=== PATIENT | male | born 1975 | race Caucasian/White ===

== ENCOUNTER 2016-10-09 11:38 | Emergency (ER) | payer OTHER ==
[2016-10-09] MEDS ORDERED: Lidocaine 1% 20 ML MDV INJECT ONE (12:06)
[2016-10-09] MEDS ORDERED: Bacitracin Oint 1 GM U/D Packet TOP ONE (12:07)
--- NOTE | 2016-10-09 12:22 | EDM.PDOC ---
ED HPI GENERAL MEDICAL PROBLEM - General Chief Complaint: Laceration Stated Complaint: LEFT THUMB INJURY Time Seen by Provider: 10/09/16 12:15 Source of Information: Reports: Patient History Limitations: Reports: No Limitations - History of Present Illness INITIAL COMMENTS - FREE TEXT/NARRATIVE: HISTORY AND PHYSICAL: History of present illness: [Patient presents to the emergency room today with complaints of laceration to left thumb. States he was working with a blade and the blade "came off" and cut the pad of his left thumb. Laceration is superficial. Patient proceeded to create a pressure dressing to control bleeding. Reports that he has had a tetanus within the last 4-5 years. Patient denies any complaints of numbness or tingling to the affected extremity. Review of systems: As per history of present illness and below otherwise all systems reviewed and negative. Past medical history: As per history of present illness and as reviewed below otherwise noncontributory. Surgical history: As per history of present illness and as reviewed below otherwise noncontributory. Social history: No reported history of drug or alcohol abuse. Family history: As per history of present illness and as reviewed below otherwise noncontributory. Physical exam: HEENT: Atraumatic, normocephalic. Lungs: Clear to auscultation, breath sounds equal bilaterally. Heart: S1S2, regular, negative for clicks, rubs, or JVD. Extremities: 1 cm vertical superficial laceration to left anterior distal pad of thumb, no current bleeding noted. No tendon involvement. No numbness or tingling. Neurovascular unremarkable. Neuro: Awake, alert, oriented. Motor and sensory unremarkable throughout. Exam nonfocal. Diagnostics: [X-ray left thumb] Therapeutics: [Dermabond closure with non-stick dressing Impression: [Superficial laceration of the left thumb] Plan: [Discussed signs and symptoms of infection which would require patient to return to the ED or follow-up with his primary provider. Patient voices understanding. Keep wound clean and dry.] Definitive disposition and diagnosis as appropriate pending reevaluation and review of above. Onset: Today Onset Date: 10/09/16 Onset Time: 11:00 Duration: Minutes: Location: Reports: Upper Extremity, Left Left 1-Thumb Pain Score (Numeric/FACES): 3 - Related Data Allergies Allergy/AdvReac Type Severity Reaction Status Date / Time No Known Allergies Allergy Verified 10/09/16 11:57 Home Meds: Home Meds . [No Known Home Meds] 10/09/16 [History] Past Medical History Musculoskeletal History: Reports: Other (See Below) Other Musculoskeletal History: R ACL tear/ no repair Social & Family History - Family History Family Medical History: Noncontributory - Tobacco Use Smoking Status *Q: Never Smoker Second Hand Smoke Exposure: No - Caffeine Use Caffeine Use: Reports: Soda - Recreational Drug Use Recreational Drug Use: No ED ROS GENERAL - Review of Systems Review Of Systems: ROS reveals no pertinent complaints other than HPI. ED EXAM, SKIN/RASH Exam: See Below (See history of present illness) Course - Vital Signs Last Recorded V/S: Last Vital Signs Temp 97.7 F 10/09/16 11:53 Pulse 95 10/09/16 11:53 Resp 18 10/09/16 11:53 BP 143/87 H 10/09/16 11:53 Pulse Ox 98 10/09/16 11:53 - Orders/Labs/Meds Meds: Medications Discontinued Medications Generic Name Dose Route Start Last Admin Trade Name Brittanie PRN Reason Stop Dose Admin Bacitracin 1 dose 10/09/16 12:07 10/09/16 12:47 Bacitracin Oint 1 Gm TOP 10/09/16 12:08 Not Given ONETIME ONE Lidocaine HCl 20 ml 10/09/16 12:06 10/09/16 12:47 Xylocaine 1% INJECT 10/09/16 12:07 Not Given ONETIME ONE Octyl Cyanoacrylate 1 applic 10/09/16 12:40 10/09/16 12:47 Dermabond Mini TOP 10/09/16 12:41 1 applic ONETIME ONE Administration Departure - Departure Time of Disposition: 12:51 Disposition: Home, Self-Care 01 Condition: Good Clinical Impression: Superficial laceration of left hand Qualifiers: Encounter type: initial encounter Qualified Code(s): S61.412A - Laceration without foreign body of left hand, initial encounter - Discharge Information Instructions: Tissue Adhesive Wound Care, [id number] Referrals: PCP,None [Primary Care Provider] - Forms: ED Department Discharge Additional Instructions: The following information is given to patients seen in the emergency department who are being discharged to home. This information is to outline your options for follow-up care. We provide all patients seen in our emergency department with a follow-up referral. The need for follow-up, as well as the timing and circumstances, are variable depending upon the specifics of your emergency department visit. If you don't have a primary care physician on staff, we will provide you with a referral. We always advise you to contact your personal physician following an emergency department visit to inform them of the circumstance of the visit and for follow-up with them and/or the need for any referrals to a consulting specialist. The emergency department will also refer you to a specialist when appropriate. This referral assures that you have the opportunity for follow-up care with a specialist. All of these measure are taken in an effort to provide you with optimal care, which includes your follow-up. Under all circumstances we always encourage you to contact your private physician who remains a resource for coordinating your care. When calling for follow-up care, please make the office aware that this follow-up is from your recent emergency room visit. If for any reason you are refused follow-up, please contact the [facility] emergency department at and asked to speak to the emergency department charge nurse. [facility] [address] [place] [id number] Follow-up with your primary care provider at the clinic listed above in 48-72 hours. Keep finger clean and dry. Do not pick at your wound adhesive. Keep covered when working. Return to ER as needed as discussed.
--- NOTE | 2016-10-09 12:38 | CR ---
Left thumb Bones are normally mineralized. There is no anatomic abnormality identified. Impression: Normal thumb
[2016-10-09] MEDS ORDERED: Octyl 2-Cyanoacrylate 1 APPLIC TUBE TOP ONE (12:40)
[2016-10-09 22:28] VITALS: BP 140/76
== END 2016-10-09 13:00 | disposition home or self-care (01) ==
LOC: MW.ED 11:38
DX: S61.012A Laceration without foreign body of left thumb without damage to nail, initial encounter (principal); W26.8XXA Contact with other sharp object(s), not elsewhere classified, initial encounter
CPT/HCPCS: 12001; 73140; 99283; A9270; 99282